=== PATIENT | male | born 1985 | race Caucasian/White ===

== ENCOUNTER 2019-12-09 03:26 | Emergency (ER) | payer BC ==
[~2019-12-09] VITALS: Ht 182.9 cm; Wt 94.3 kg
[~2019-12-09 03:26] MED LIST: IBUPROFEN 800800 M1 PO
[2019-12-09 03:55] LABS: BASOPHILS 1.1 % (0.0-2.0); EOSINOPHILS 1.5 % (0.0-3.0); HEMATOCRIT 46.2 % (42.0-52.0); HEMOGLOBIN 15.7 gm/dL (14.0-18.0); LYMPHOCYTES 21.3 % (24.0-44.0); MCH 31.8 pg (26.0-34.0); MCHC 33.8 g/dL (28.0-37.0); MCV 94.1 fL (80.0-100.0); MONOCYTES 5.2 % (1.0-8.0); PLATELET COUNT 281 thou/uL (150-400); POLYS 70.9 % (36.0-66.0); RBC 4.92 mil/uL (4.50-6.00); RDW 13.1 % (10.5-14.5); WBC 18.3 thou/uL (4.0-11.0)
[2019-12-09 03:59] LABS: CALCIUM 8.3 mg/dL (8.5-10.1); CREATININE 1.4 mg/dL (0.7-1.3); POTASSIUM 3.6 mmol/L (3.5-5.1)
[2019-12-09 04:05] LABS: ALBUMIN 3.8 g/dL (3.4-5.0); TOTAL BILIRUBIN 0.2 mg/dL (0.2-1.0); TOTAL PROTEIN 6.6 g/dL (6.4-8.2)
[2019-12-09 08:28] VITALS: BP 109/60
--- NOTE | 2019-12-09 10:29 | EKG ---
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
--- NOTE | 2019-12-09 10:29 | EKG ---
[facility] [place] [address] ELECTROCARDIOGRAM REPORT Name: JESSEE SIERRA Room #: DEP [facility]#: [id number] Admission: 12/09/19 Attend Phys: Discharge: 12/09/19 Date of : 81 Report #: [id number] THIS REPORT FOR: cc: JASON - Beth family physician/PCP JASON - Beth family physician/PCP Maxx Trujillo MD 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
== END 2019-12-09 08:31 | disposition home or self-care (01) ==
LOC: ER 03:26
PROVIDERS: Emergency Medicine
DX: R07.9 Chest pain, unspecified (principal); R06.02 Shortness of breath

== ENCOUNTER 2020-05-03 17:25 | Emergency (ER) | payer BC ==
[~2020-05-03] VITALS: Ht 182.9 cm; Wt 97.5 kg
[2020-05-03 17:27] VITALS: BP 140/78
== END 2020-05-03 18:21 | disposition home or self-care (01) ==
LOC: ER 17:25
DX: S61.011A Laceration without foreign body of right thumb without damage to nail, initial encounter (principal); W26.8XXA Contact with other sharp object(s), not elsewhere classified, initial encounter; Y93.89 Activity, other specified; Y92.89 Other specified places as the place of occurrence of the external cause; Y99.8 Other external cause status

== ENCOUNTER 2021-06-12 15:41 | Emergency (ER) | payer BC ==
[~2021-06-12] VITALS: Ht 182.9 cm; Wt 97.5 kg
--- NOTE | ~2021-06-12 | EMS ---
[address] [address] EMS Patient Care Report Name: JESSEE SIERRA Room #: DEP [facility]#: [id number] Admission: 06/12/21 Attend Phys: Discharge: 06/12/21 Date of : [birth year] Report #: [id number] THIS REPORT FOR: //name// Report Transmitted: 06/13/2021 05:38 EMS Care Summary [facility] MED-ACT Incident [id number] @ 06/12/2021 14:41 Incident Location [address] [place] [address] Patient JESSEE SIERRA Male, 36 Years 1985 Patient Address [address] [place] [address] Patient History None Reported, Patient Allergies No known allergies, Patient Medications None Reported, Chief Complaint lower back pain Disposition Transported No Lights/[place] Dispatch Reason Back Pain (Non-Traumatic) Transported To [facility] Narrative We were dispatched to the listed location for back pain. Upon our arrival, we found the patient lying prone on the floor and in obvious pain. The patient was alert and oriented with a GCS of 15. [address] [address] EMS Patient Care Report Name: JESSEE SIERRA Room #: DEP [facility]#: [id number] Admission: 06/12/21 Attend Phys: Discharge: 06/12/21 Date of : [birth year] Report #: [id number] The patient is a 36 year old male who reported lifting an auger from his basement this morning when he injured his lower back. As the day progressed, his lower back pain got worse. Eventually, the patient's lower back "locked up" and he was unable to walk which is why EMS was called. The patient complained of severe sharp non-radiating pain to the lower back which he rated 10/10. He added that he had injured his lower back while weight lifting "years ago in high school" which he has a history of aggravating. He denied chest pain, dyspnea, dizziness, syncope, nausea, vomiting, numbness/tingling of the lower extremities or any other complaints. He requested transport to [facility] for treatment. After an assessment and vitals, venous access was unsuccessfully attempted. Therefore, we elected to administer 100 mcg IM for pain management. ECG was monitored. The patient reported a reduction in his pain. Then the patient was log rolled on to a scoop stretcher and lifted to the cot. After being secured to the cot, he was taken to the unit. Again venous access was unsuccessful. There were no other changes in his condition and care was transferred without incident. Initial Vitals @14:56P: 90,IL Suspected: false @15:30P: 69,SpO2: 98,IL Suspected: false @15:05P: 75,IL Suspected: false @15:30P: 68,R: 18,BP: 124/69,SpO2: 99,IL Suspected: false @15:18P: 78,R: 18,BP: 124/82,SpO2: 99, @15:25P: 72,R: 18,BP: 127/82,Pain: 6/10,SpO2: 99,IL Suspected: false @15:34P: 70,R: 18,BP: 147/87,SpO2: 98, @14:57P: 90,R: 18,BP: 133/86,Pain: 10/10,GCS: 15,Temp: 97.8F,SpO2: 99,Revised Trauma: 12, Impression Back Pain Procedures @15:05 Fentanyl - 100 Micrograms (mcg) - Intramuscular (IM) Response: Improved @14:56 ALS Assessment Response: UnchangedSucceeded @15:00 Surgical Mask on Patient Response: Unchanged @15:00 IV Therapy - Saline Lock cc (20 ga) Site: Hand-Left Response: UnchangedFailed @15:18 IV Therapy - Saline Lock cc (20 ga) Site: Hand-Right Response: UnchangedFailed Timeline 14:40,Call Received [address] [address] EMS Patient Care Report Name: JESSEE SIERRA Room #: DEP [facility]#: [id number] Admission: 06/12/21 Attend Phys: Discharge: 06/12/21 Date of : 81 Report #: [id number] 14:40,Psap Call 14:41,Dispatched 14:42,En Route 14:51,On Scene 14:54,At Patient 14:56,ALS Assessment,Response: UnchangedSucceeded, 14:56,BP: / M,PULSE: 90,RR: R,SPO2: Ox,ETCO2: ,BG: ,PAIN: ,GCS: , 14:57,BP: 133/86 M,PULSE: 90,RR: 18 R,SPO2: 99 Ox,ETCO2: ,BG: ,PAIN: 10,GCS: 15, 15:00,Surgical Mask on Patient,Response: Unchanged 15:00,IV Therapy - Saline Lock cc 20 ga Site: Hand-Left,Response: UnchangedFailed, 15:05,Fentanyl - 100 Micrograms (mcg) - Intramuscular (IM),Response: Improved 15:05,BP: / M,PULSE: 75,RR: R,SPO2: Ox,ETCO2: ,BG: ,PAIN: ,GCS: , 15:18,IV Therapy - Saline Lock cc 20 ga Site: Hand-Right,Response: UnchangedFailed, 15:18,BP: 124/82 M,PULSE: 78,RR: 18 R,SPO2: 99 Ox,ETCO2: ,BG: ,PAIN: ,GCS: , 15:25,BP: 127/82 M,PULSE: 72,RR: 18 R,SPO2: 99 Ox,ETCO2: ,BG: ,PAIN: 6,GCS: , 15:26,Depart Scene 15:30,BP: / M,PULSE: 69,RR: R,SPO2: 98 Ox,ETCO2: ,BG: ,PAIN: ,GCS: , 15:30,BP: 124/69 M,PULSE: 68,RR: 18 R,SPO2: 99 Ox,ETCO2: ,BG: ,PAIN: ,GCS: , 15:34,BP: 147/87 M,PULSE: 70,RR: 18 R,SPO2: 98 Ox,ETCO2: ,BG: ,PAIN: ,GCS: , 15:35,At Destination 15:52,Call Closed Disclaimer v1.1 Copyright 2021 [employer] This EMS Care Summary contains data elements from the applicable legal record (which may be displayed differently). It is designed to provide pertinent information for the following purposes: continuity of care, clinical quality, and state data reporting. The complete legal record is available to ED staff and administrators of the receiving hospital in [employer] Patient Tracker. All data is provided "as is."
[2021-06-12 18:46] VITALS: BP 119/76
[2021-06-12] MEDS ORDERED: PERCOCET 5-3251 EACH PO (19:11)
== END 2021-06-12 18:46 | disposition home or self-care (01) ==
LOC: ER 15:41
DX: S32.019A Unspecified fracture of first lumbar vertebra, initial encounter for closed fracture (principal); S32.029A Unspecified fracture of second lumbar vertebra, initial encounter for closed fracture; G89.29 Other chronic pain; X50.0XXA Overexertion from strenuous movement or load, initial encounter; Y93.89 Activity, other specified; Y92.89 Other specified places as the place of occurrence of the external cause; Y99.8 Other external cause status